=== PATIENT | male | born 1965 | race Caucasian/White ===

== ENCOUNTER 2020-12-02 13:57 | Emergency (ER) | payer OTHER ==
[~2020-12-02] VITALS: Ht 182.9 cm; Wt 102.1 kg
[2020-12-02 15:35] LABS: ABSOLUTE BASOPHILS 0.1 thou/uL (0.0-0.2); ABSOLUTE LYMPHOCYTES 1.6 thou/uL (0.8-5.3); ABSOLUTE MONOCYTES 1.2 thou/uL (0.0-1.2); ABSOLUTE NEUTROPHILS 15.1 thou/uL (1.6-8.1); BASOPHILS 0.4 %; EOSINOPHILS 0.1 %; HEMATOCRIT 49.9 % (42.0-52.0); HEMOGLOBIN 16.6 gm/dL (14.0-18.0); LYMPHOCYTES 9.1 %; MCH 29.3 pg (26.0-34.0); MCHC 33.3 g/dL (28.0-37.0); MCV 87.8 fL (80.0-100.0); MONOCYTES 6.7 %; NUCLEATED RBCS 0 /100WBC; PLATELET COUNT* 364 thou/uL (150-400); POLYS 83.7 %; RBC 5.69 mil/uL (4.50-6.00)
[2020-12-02 15:36] LABS: CALCIUM 9.6 mg/dL (8.5-10.1); CREATININE 1.2 mg/dL (0.6-1.3); POTASSIUM 3.7 mmol/L (3.5-5.1)
[2020-12-02 15:41] LABS: ALBUMIN 4.4 g/dL (3.4-5.0); TOTAL PROTEIN 7.6 g/dL (6.4-8.2)
[2020-12-02] MEDS ORDERED: MECLIZINE HCL25 M1 PO (16:13)
[2020-12-02] MEDS ORDERED: PREDNISONE 20 M20 MG PO (16:13)
[2020-12-02] MEDS ORDERED: AFRIN15 ML NASAL (16:13)
[2020-12-02] MEDS ORDERED: TRANSDERM-SCOP1 EACH TRANSDERM (16:13)
[2020-12-02] MEDS ORDERED: AUGMENTIN 875-1 EACH PO (16:13)
[2020-12-02 16:33] VITALS: BP 172/103
--- NOTE | 2020-12-03 10:48 | EKG ---
[place] [address] ELECTROCARDIOGRAM REPORT Name: HAYLEE DE LA TORRE Esperanza Room: [facility]#: [id number] Admission: 12/02/20 Attend Phys: Discharge: 12/02/20 Date of : 65 Date of Service: 12/02/20 1422 Report #: [id number] THIS REPORT FOR: //name// [facility] ED Test Date: 2020-12-02 Test Time: 14:22:54 Pat Name: HAYLEE DE LA TORRE Department: Room: Gender: Movie Actor: STUDENT : 1965 Requested By: Joana Clark Order Number: [id number] MD: Santos Yañez Measurements Intervals [place] Rate: 85 P: 59 [place]: 186 QRS: 4 QRSD: 99 T: 29 QT: 348 QTc: 414 Interpretive Statements Sinus rhythm Probable left atrial enlargement No previous ECG available for comparison Electronically Signed On 12-03-2020 10:48:19 CDT by Santos Yañez [email or web address] <ELECTRONICALLY SIGNED> By: Starr Yañez MD, [facility] 12/03/20 1048 1422 142 Starr Yañez MD, [facility] /EPI
== END 2020-12-02 16:34 | disposition home or self-care (01) ==
LOC: M.ERS 13:57
PROVIDERS: Physician Assistant
DX: J01.90 Acute sinusitis, unspecified (principal); R42 Dizziness and giddiness